=== PATIENT | male | born 1970 | race Caucasian/White ===

== ENCOUNTER 2023-12-07 04:54 | Emergency (ER) | payer OTHER, SELFPAY ==
--- NOTE | ~2023-12-07 | US_ITS ---
US scrotum doppler INDICATION: Left testicular swelling and pain TECHNIQUE: Testicular sonogram utilizing grayscale and color Doppler FINDINGS: The testes are normal in size and appearance. No focal lesions are seen. The right testes measures 5.1 x 2.6 x 1.9 cm centimeters, and the left testis measures 4.6 x 2.5 x 3.5 cm cm. There is normal vascular flow to both testes. There is a 5 mm right epididymal cysts. There is a large right hydrocele. There is a right varicocele. Prominent rete testes of the left test icle. IMPRESSION: 1. Large left hydrocele. 2: Left varicocele. 3: Right epididymal cyst measuring 5 mm. Reviewed, dictated and finalized at location B.
[2023-12-07 04:58] VITALS: BP 187/119; PULSE 83; RESP 18; TEMP 36.7; O2SAT 99
[2023-12-07 07:01] LABS: Basophils Percent Auto 0.8 % (0.2-1.2); Eosinophils Absolute Auto 0.2 K/mm3 (0-0.3); Eosinophils Percent Auto 2.9 % (0-4.4); Hematocrit 44.8 % (42.0-52.0); Hemoglobin 15.5 g/dL (14.0-18.0); Immature Granulocyte Absolute 0.02 K/mm3 (0.00-0.031); Immature Granulocyte Percent A 0.4 % (0-0.5); Lymphocytes Absolute Auto 1.54 K/mm3 (0.9-3.2); Lymphocytes Percent Auto 29.8 % (18.3-44.2); Mean Corpuscular HGB Conc 34.6 g/dl (32-36); Mean Corpuscular Hemoglobin 30.5 pg (26-34); Mean Platelet Volume 10.6 fl (7.4-10.4); Monocytes Absolute Auto 0.5 K/mm3 (0.1-0.6); Monocytes Percent Auto 9.1 % (2.6-8.5); Neutrophils Absolute Auto 2.9 K/mm3 (1.3-6.7); Platelet Count Result 208 k/mm3 (150-375); Red Blood Count 5.09 M/mm3 (4.6-6.20); Red Cell Distribution Width 12.6 % (11.5-14.5); White Blood Count 5.2 K/mm3 (4.5-10.0)
[2023-12-07 07:02] LABS: Appearance Urine Clear (Clear); Bilirubin Urine Negative (Negative); Blood Urine Negative (Negative); Color Urine Yellow (Yellow); Glucose Urine UA Negative (Negative); Ketones Urine Negative (Negative); Leukocyte Esterase Ur Negative LEU/UL (Negative); Nitrate Urine Negative (Negative); Protein Urine Negative (Negative); Specific Grav Ur 1.009 (1.001-1.035); Urobilinogen Urine 0.2 mg/dL (<2.0); pH Urine 6.5 (5.0-9.0)
[2023-12-07 07:10] LABS: Alanine Aminotransferase 49 U/L (6-50); Albumin Level 4.8 g/dL (3.5-5.1); Alkaline Phosphatase 75 U/L (38-126); Anion Gap 12 mmol/L (4-12); Aspartate Amino Transferase 44 U/L (17-59); Bilirubin,Total 0.9 mg/dL (0.2-1.3); Blood Urea Nitrogen 9 mg/dL (9-20); Calcium 9.1 mg/dL (8.4-10.2); Carbon Dioxide 25 mmol/L (22-30); Chloride 100 mmol/L (98-107); Estimated CRCL calculation 109 ml/min; Estimated Glomerular Filt Rate > 60; Glucose 142 mg/dL (65-110); Lipase 72 U/L (23-300); Potassium 3.8 mmol/L (3.4-5.0); Sodium 137 mmol/L (137-145)
[2023-12-07 07:14] LABS: Add Urine Microscopic? NO
--- NOTE | 2023-12-07 08:27 | ED.MALEGU ---
HPI - Male Genitourinary General Chief complaint: Urogenital-Male Stated complaint: abd pain Time Seen by Provider: 12/07/23 08:14 Source: patient and family () Mode of arrival: ambulatory Limitations: no limitations History of Present Illness HPI Narrative: Patient presents with complaint of left testicular pain for the past 3 weeks. It got better then recurred. This has otherwise never happened before. Pain is worse when sitting but when he stands he notices his leg seems to go numb, particularly along the anterior thigh. He has a history of a desmoid tumor status post resection in 1996. Initially states he has not seen a urologist but later states he does have a history of a varicocele which was worked up when he and his were experiencing some fertility issues years ago. Denies any dysuria, hematuria, urgency, frequency, fevers, or penile discharge. His last bowel movement was yesterday approximately 3 denies any blood in the diarrhea constipation. He is sexually active with his work. Denies any history of sexually transmitted infections. Initial triage complaint of listed abdominal pain but he denies any abdominal pain. Related Data Allergies Allergy/AdvReac Type Severity Reaction Status Date / Time No Known Allergies Allergy Verified 12/07/23 06:57 PMFSH Past Medical History Medical History Desmoid tumor of abdominal wall 1996; s/p resection (not associated with FAP) Varicocele Family History Family History (Updated 11/24/14 @ 08:35 by DOCTOR UNKNOWN) Other Acute myocardial infarction Family history of lung cancer Hypertension Social History Social History Smoking status: Never smoker Second hand tobacco smoke exposure: No Alcohol intake: never Living arrangements: with family Additional living arrangements comments: ; children grown Exam Narrative: GENERAL: Well-appearing, well-nourished, and in no acute distress. HEAD: Normocephalic, atraumatic. EYES: Non injected, non icteric ENT: Nares clear, no rhinorrhea or epistaxis. NECK: Supple. CHEST: Speaking in full sentences. No respiratory distress. HEART: Regular rate and rhythm. . ABDOMEN: Soft, nondistended. Large Scar midline. Nontender to palpation without rigidity or guarding. : Normal male genitalia. Left scrotal swelling. No change in symptoms with elevation of either testicle. No tenderness to palpation of either testicle or epididymis. Left scrotum does partially transilluminate under light but there also appears to be dilated veins. No penile discharge. EXTREMITIES: Normal range of motion. No edema. Thigh without erythema/edema/overlying skin changes/pallor. Compartments soft. SKIN: Warm, dry, no rash. NEURO: No focal deficits. Alert and oriented x3. Ambulates with steady gait. PSYCH: Normal mood and affect. Course Vital Signs Vital signs: Vital Signs Temperature 98.0 F 12/07/23 04:58 Pulse Rate 83 12/07/23 04:58 Respiratory Rate 18 12/07/23 04:58 Blood Pressure 187/119 H 12/07/23 04:58 Pulse Oximetry 99 12/07/23 04:58 Oxygen Delivery Room Air 12/07/23 04:58 Temperature 98.0 F 12/07/23 04:58 Pulse Rate 83 12/07/23 04:58 Respiratory Rate 18 12/07/23 04:58 Blood Pressure 187/119 H 12/07/23 04:58 Pulse Oximetry 99 12/07/23 04:58 Oxygen Delivery Room Air 12/07/23 04:58 MDM - Male Genitourinary MDM Narrative Medical decision making narrative: Patient presents with left scrotal pain for the past 3 weeks which improved and then recurred. In the emergency department he is afebrile with vital signs notable for hypertension. Urinalysis unremarkable. Ultrasound as below shows hydrocele and varicocele on left as well as an incidental finding of right epididymal cyst. Patient is informed about these findings. We discussed scrotal elevation
[2023-12-07] MEDS: HYDROcodone/acetaminophen (*CRX) 5-325 MG TABLET 1 TAB PO (08:38)
== END 2023-12-07 10:48 | disposition home or self-care (01) ==
PROVIDERS: Emergency Medicine; Emergency Provider Student in an Organized Health Care Education/Training Program; PCP Family Medicine
DX: N43.3 Hydrocele, unspecified (principal); I86.1 Scrotal varices; N50.3 Cyst of epididymis; R73.9 Hyperglycemia, unspecified
CPT/HCPCS: 36415; 76870; 80053; 81003; 83690; 85025; 93976; 99284; A9270